=== PATIENT | male | born 1950 | race Caucasian/White ===

== ENCOUNTER 2025-03-16 12:26 | Day surgery (SDC) | payer OTHER ==
[~2025-03-16] VITALS: Ht 170.2 cm; Wt 76.6 kg
[~2025-03-16 12:26] MED LIST: ACET325 PO; Doxycycline Hy100 MG PO; HYDACE10B PO; LOSA50 PO; ONDA4ODT MM; Povidone-Iodine 450 DROP/30 ML Solution ONE; Tetracaine HCl/Pf 0.5% Opth Soln 4 ml ONE
[2025-03-16] MEDS ORDERED: Midazolam HCl 1MG / ML 2ML Vial ONE (12:27)
[2025-03-16] MEDS ORDERED: FentaNYL Citrate 50 MCG/ML 2 ML Injection ONE (12:27)
--- NOTE | 2025-03-16 12:46 | NUR ---
03/16/25 [id number] Keshawn Whyte CALL LIGHT WITHIN REACH.
[2025-03-16] MEDS ORDERED: Balanced Salt Epinephrine Irrigation Solution 500 mL RIGHTEYE ONE ×2 (13:24→13:30)
[2025-03-16] MEDS ORDERED: Moxifloxacin HCL 0.5 MG/0.1 ML 0.4MLSYR RIGHTEYE ONE ×2 (13:24→13:30)
--- NOTE | 2025-03-16 13:46 | NUR ---
03/16/[address] AT BEDSIDE
[2025-03-16 13:54] VITALS: BP 153/78
== END 2025-03-16 14:07 | disposition home or self-care (01) ==
LOC: ORSCSDS 12:26
PROVIDERS: Student in an Organized Health Care Education/Training Program
PROC: 08RJ3JZ Replacement of Right Lens with Synthetic Substitute, Percutaneous Approach (ICD-10-PCS; principal; 2025-03-16 14:00)
PROC: 08923ZZ Drainage of Right Anterior Chamber, Percutaneous Approach (ICD-10-PCS; principal; 2025-03-16 14:00)
DX: H25.813 Combined forms of age-related cataract, bilateral (principal); H40.1410 Capsular glaucoma with pseudoexfoliation of lens, right eye, stage unspecified; H25.11 Age-related nuclear cataract, right eye; I10 Essential (primary) hypertension; Z79.899 Other long term (current) drug therapy
CPT/HCPCS: J2250; J3010; J7120; V2632

== ENCOUNTER 2025-04-06 08:56 | Day surgery (SDC) | payer OTHER ==
[~2025-04-06] VITALS: Ht 170.2 cm; Wt 75.5 kg
[~2025-04-06 08:56] MED LIST changes: +Balanced Salt Epinephrine Irrigation Solution 500 mL IR SCH; +Moxifloxacin HCL 0.5 MG/0.1 ML 0.4MLSYR LEFTEYE SCH; +NS 500 ML IV ONE; +PHENYLEPHRINE\\TROPICAMIDE\\TETRACAINE OPHTHALMIC DILATING SOLN LEFTEYE PRN; +Povidone-Iodine 450 DROP/30 ML Solution LEFTEYE SCH
[2025-04-06] MEDS ORDERED: NS 500 ML IV ONE ×2 (09:32)
--- NOTE | 2025-04-06 09:32 | NUR ---
04/06/25 0932 Keshawn Whyte CALL LIGHT WITHIN REACH. EYE DROPS AROUND 0930
[2025-04-06] MEDS ORDERED: Midazolam HCl 1MG / ML 2ML Vial ONE (10:01)
[2025-04-06] MEDS ORDERED: Tetracaine HCl 0.5% Opth Soln 15 ml LEFTEYE ONE (10:06)
[2025-04-06 10:44] VITALS: BP 140/78
== END 2025-04-06 10:43 | disposition home or self-care (01) ==
LOC: ORSCSDS 08:56
PROVIDERS: Student in an Organized Health Care Education/Training Program
PROC: 08933ZZ Drainage of Left Anterior Chamber, Percutaneous Approach (ICD-10-PCS; principal; 2025-04-06 10:30)
PROC: 08RK3JZ Replacement of Left Lens with Synthetic Substitute, Percutaneous Approach (ICD-10-PCS; principal; 2025-04-06 10:30)
DX: H25.812 Combined forms of age-related cataract, left eye (principal); H40.1423 Capsular glaucoma with pseudoexfoliation of lens, left eye, severe stage; Z96.1 Presence of intraocular lens; I10 Essential (primary) hypertension; Z79.899 Other long term (current) drug therapy
CPT/HCPCS: J2250; J7040; V2632